=== PATIENT | female | born 1955 | race African-American/Black ===

== ENCOUNTER 2020-07-02 12:13 | Inpatient (IN) | payer MEDICARE, OTHER ==
[2020-07-02] MEDS ORDERED: Insulin Regular 300 UNITS/3 ML VIAL ONE (12:22)
[2020-07-02] MEDS ORDERED: Norepinephrine 8 MG/0.9% NS 250 ML ONE ×2 (12:31→18:52)
[2020-07-02 12:56] LABS: Hemoglobin 7.7 g/dL (12.0-16.0); Mean Corpuscular Hemoglobin 31.5 pg (27.0-31.0); RBC Distribution Width 16.5 % (11.5-14.5); Red Blood Cell (RBC) Count 2.44 mill/uL (4.20-5.40); White Blood Cell (WBC) Count 8.5 thou/uL (4.8-10.8)
[2020-07-02 12:57] LABS: #Basophils 0.1 thou/uL (0.0-0.2); #Lymphocytes 3.5 thou/uL (1.20-3.40); #Monocytes 0.1 thou/uL (0.11-0.59); #Neutrophils 4.9 thou/uL (1.40-6.50); %Basophils 1.2 % (0.0-1.0); %Eosinophils 0.1 % (0.0-10.0); %Lymphocytes 40.5 % (21.0-51.0); %Monocytes 0.8 % (0.0-10.0); %Neutrophils 57.4 % (42.0-75.0)
[2020-07-02 13:01] LABS: INR-International Normal Ratio 1.3; Prothrombin Time 16.2 sec (12.0-14.7)
[2020-07-02 13:02] LABS: PTT 50.4 sec (22.9-36.1)
[2020-07-02 13:15] LABS: Analyzer IN Cardio ER; Base Excess (BEa) -10.6 mEq/L (-2.0 to +3.0); Calcium, Ionized (arterial) 1.27 mmol/L (1.12-1.30); Carboxyhemoglobin (COHb) 0.3 gm% (0.0-3.0); Hemoglobin (Hb) 10.4 g/dL (12.0-16.0); O2 Tension (PaO2), arterial 72.6 mmHg (> 80.0); Potassium - ABG Lab 5.46 mmol/L (3.70-5.30); pH, Arterial 7.11 (7.35-7.45)
[2020-07-02 13:16] LABS: ALV-art Gradient 564.275 mmHg (0-20); CO2 Tension 60.9 mmHg (35.0-45.0); Puncture Site RBA
[2020-07-02 13:20] LABS: Acetaminophen Less than 6.0 mcg/mL (10.0-30.0); Alcohol Less than 10 mg/dL (Less than 10); CK (CPK) 116 U/L (29-168); Magnesium 2.6 mg/dL (1.6-2.6); Salicylate Less than 8.0 mg/dL (15.0-30.0)
[2020-07-02 13:22] LABS: ALT (SGPT) 667 U/L (8-55); AST (SGOT) 890 U/L (5-34); Albumin 2.7 g/dL (3.4-4.8); Alkaline Phosphatase 69 U/L (40-110); Anion Gap 32 mmol/L (10-20); BUN (Urea Nitrogen) 72 mg/dL (9.8-20.1); Bilirubin, Total 0.4 mg/dL (0.2-1.2); Calc. Creatinine Clearance 0 mL/min (70-130); Calcium 8.1 mg/dL (7.8-10.44); Carbon Dioxide 19 mmol/L (23-31); Chloride 91 mmol/L (98-107); Globulin 2.5 g/dL (2.4-3.5); Lipase 55 U/L (8-78); Potassium 5.9 mmol/L (3.5-5.1); Protein, Total 5.2 g/dL (5.8-8.1); Sodium 136 mmol/L (136-145)
[2020-07-02 13:22] LABS: Anisocytosis SLIGHT = 6-15 cells (100X) (0-5/hpf); Hypochromia SLIGHT = 6-15 cells (100X) (0-5/hpf); Large Platelets SLIGHT; MDiff Complete? YES; Macrocytosis SLIGHT = 6-15 cells (100X) (0-5/hpf); Mean Platelet Volume 11.4 fL (7.4-10.4); Platelet Count 100 thou/uL (130-400); Platelet Morphology Comment Appears Decreased; Polychromasia SLIGHT = 2-3 cells (100X) (0-2/hpf)
[2020-07-02 13:45] LABS: Glucose 795 mg/dL (80-115)
[2020-07-02 14:03] LABS: CKMB 0.9 ng/mL (0-6.6)
[2020-07-02] MEDS ORDERED: Calcium Chloride 1 GM/10 ML Abboject SYRINGE ONE (14:05)
[2020-07-02] MEDS ORDERED: Sodium Bicarb 50 MEQ/50 ML Abboject 8.4% SYRINGE ONE (14:05)
[2020-07-02] MEDS ORDERED: Dextrose 50% Abboject 50 ML SYRINGE ONE (14:05)
[2020-07-02] MEDS ORDERED: EPINEPHrine 1 MG/10 ML Abboject SYRINGE ONE (14:05)
[2020-07-02 14:31] LABS: Bacteria/HPF None Seen HPF (None Seen); Bilirubin Negative (Negative); Blood, Urine 2+ (Negative); Clarity Clear (Clear); Glucose, Urine (Dipstick) Greater than 1000 mg/dL (Negative); Ketone, Urine Negative (Negative); Leukocyte Negative Leu/uL (Negative); Nitrite Negative (Negative); Protein, Urine (Dipstick) 20 mg/dL (Neg-Trace); RBC/HPF 0-3 HPF (0-3); Specific Gravity, Urine 1.011 (1.002-1.036); Squamous Epithelial 0-3 HPF (0-3); Urobilinogen Normal mg/dL (Less than 2)
[2020-07-02] MEDS ORDERED: Electrolyte Replacement Protocol 1 EACH IVPB ONE (14:34)
[2020-07-02] MEDS ORDERED: Sodium Chloride 0.9% 1,000 ML IV PRN ×4 (14:34)
[2020-07-02] MEDS ORDERED: NS 0.9% w/ 20 MEQ KCL 1,000 ML IV PRN (14:34)
[2020-07-02 14:37] LABS: Amphetamine Not Detected (NotDetected); Barbiturates Screen Not Detected (NotDetected); Benzodiazepine Screen Not Detected (NotDetected); Cocaine Metabolite Screen Not Detected (NotDetected); Medtox Control Line Valid? VALID (VALID); Medtox Reader # READER 1; Methadone Not Detected (NotDetected); Methamphetamine Not Detected (NotDetected); Opiate Screen Not Detected (NotDetected); Oxycodone Screen Not Detected (NotDetected); Phencyclidine (PCP) Not Detected (NotDetected); THC/Cannabinoid Screen Not Detected (NotDetected); Tricyclic Screen Not Detected (NotDetected)
[2020-07-02] MEDS ORDERED: HUMULIN R 100 UNITS in Sodium Chloride 0.9% 100 ML IVPB SCH (14:45)
[2020-07-02 15:18] LABS: Actual Bicarbonate (HCO3a) 26.9 mEq/L (22-28); Analyzer IN Cardio ER; Base Excess (BEa) -1.5 mEq/L (-2.0 to +3.0); Calcium, Ionized (arterial) 1.17 mmol/L (1.12-1.30); Carboxyhemoglobin (COHb) 0.3 gm% (0.0-3.0); Hemoglobin (Hb) 9.3 g/dL (12.0-16.0); Potassium - ABG Lab 4.72 mmol/L (3.70-5.30)
[2020-07-02 15:20] LABS: CO2 Tension 67.9 mmHg (35.0-45.0); O2 Tension (PaO2), arterial 34.2 mmHg (> 80.0); pH, Arterial 7.22 (7.35-7.45)
[2020-07-02 15:21] LABS: Puncture Site Other Site
[2020-07-02 15:22] LABS: ALV-art Gradient 593.925 mmHg (0-20)
[2020-07-02 16:40] LABS: Anion Gap 26 mmol/L (10-20); BUN (Urea Nitrogen) 74 mg/dL (9.8-20.1); Calc. Creatinine Clearance 0 mL/min (70-130); Calcium 8.6 mg/dL (7.8-10.44); Carbon Dioxide 24 mmol/L (23-31); Chloride 97 mmol/L (98-107); Potassium 4.6 mmol/L (3.5-5.1); Sodium 142 mmol/L (136-145)
[2020-07-02 16:49] LABS: Glucose 651 mg/dL (80-115); Lactic Acid 10.1 mmol/L (0.5-2.2)
[2020-07-02] MEDS ORDERED: Vasopressin 20 UNIT, Admixture Fee 1 EACH in Sodium Chloride 0.9% 50 ML IV SCH (17:30)
[2020-07-02 17:31] LABS: Actual Bicarbonate (HCO3a) 27.6 mEq/L (22-28); Base Excess (BEa) 0.6 mEq/L (-2.0 to +3.0); CO2 Tension 56.8 mmHg (35.0-45.0); Calcium, Ionized (arterial) 1.13 mmol/L (1.12-1.30); Carboxyhemoglobin (COHb) 0.3 gm% (0.0-3.0); Hemoglobin (Hb) 10.5 g/dL (12.0-16.0); Potassium - ABG Lab 4.22 mmol/L (3.70-5.30); pH, Arterial 7.31 (7.35-7.45)
[2020-07-02 17:35] LABS: Puncture Site RRA
[2020-07-02 17:44] VITALS: BMI 42.8
[2020-07-02 17:56] LABS: #Lymphocytes 1.1 thou/uL (1.20-3.40); #Monocytes 0.4 thou/uL (0.11-0.59); #Neutrophils 6.8 thou/uL (1.40-6.50); %Basophils 0.1 % (0.0-1.0); %Eosinophils 0.2 % (0.0-10.0); %Lymphocytes 12.9 % (21.0-51.0); %Neutrophils 81.8 % (42.0-75.0); Hemoglobin 9.4 g/dL (12.0-16.0); Mean Corpuscular HGB CONC 30.8 g/dL (32.0-36.0); Mean Corpuscular Hemoglobin 30.5 pg (27.0-31.0); Mean Corpuscular Volume 99.2 fL (78.0-98.0); Mean Platelet Volume 11.2 fL (7.4-10.4); Platelet Count 136 thou/uL (130-400); RBC Distribution Width 16.4 % (11.5-14.5); Red Blood Cell (RBC) Count 3.07 mill/uL (4.20-5.40); White Blood Cell (WBC) Count 8.3 thou/uL (4.8-10.8)
[2020-07-02 18:00] LABS: Anion Gap 25 mmol/L (10-20); BUN (Urea Nitrogen) 73 mg/dL (9.8-20.1); Calc. Creatinine Clearance 34 mL/min (70-130); Calcium 8.3 mg/dL (7.8-10.44); Carbon Dioxide 23 mmol/L (23-31); Chloride 98 mmol/L (98-107); Potassium 4.6 mmol/L (3.5-5.1); Sodium 141 mmol/L (136-145)
[2020-07-02 18:02] LABS: Glucose 683 mg/dL (80-115); Lactic Acid 6.3 mmol/L (0.5-2.2)
[2020-07-02 18:06] LABS: Troponin I 0.146 ng/mL (< 0.028)
[2020-07-02] MEDS: HUMULIN R 100 UNITS in Sodium Chloride 0.9% 100 ML IVPB SCH (18:49)
[2020-07-02] MEDS: Sodium Chloride 0.9% 1,000 ML IV SCH (19:05)
[2020-07-02 20:16] LABS: Anion Gap 19 mmol/L (10-20); BUN (Urea Nitrogen) 79 mg/dL (9.8-20.1); Calc. Creatinine Clearance 34 mL/min (70-130); Calcium 8.2 mg/dL (7.8-10.44); Carbon Dioxide 29 mmol/L (23-31); Chloride 96 mmol/L (98-107); Potassium 4.2 mmol/L (3.5-5.1); Sodium 140 mmol/L (136-145)
[2020-07-02 20:20] LABS: Glucose 730 mg/dL (80-115); Troponin I 0.223 ng/mL (< 0.028)
[2020-07-02] MEDS: Pantoprazole 40 MG VIAL IVP SCH (20:30)
[2020-07-02] MEDS: Dexamethasone 4 mg/ml Vial SLOW IVP SCH (20:30)
[2020-07-02 23:09] LABS: Lactic Acid 3.1 mmol/L (0.5-2.2)
[2020-07-02 23:12] LABS: Anion Gap 20 mmol/L (10-20); BUN (Urea Nitrogen) 80 mg/dL (9.8-20.1); Calc. Creatinine Clearance 30 mL/min (70-130); Calcium 8.3 mg/dL (7.8-10.44); Carbon Dioxide 28 mmol/L (23-31); Chloride 99 mmol/L (98-107); Potassium 3.5 mmol/L (3.5-5.1); Sodium 143 mmol/L (136-145)
[2020-07-02 23:14] LABS: Glucose 595 mg/dL (80-115)
[2020-07-03 00:15] LABS: Hemoglobin 9.8 g/dL (12.0-16.0); Platelet Count 135 thou/uL (130-400)
[2020-07-03] MEDS: HUMULIN R 100 UNITS in Sodium Chloride 0.9% 100 ML IVPB SCH ×3 (00:26→07:55)
[2020-07-03 01:45] LABS: Lactic Acid 3.8 mmol/L (0.5-2.2)
[2020-07-03] MEDS: Norepinephrine 8 MG/0.9% NS 250 ML IVPB SCH (03:48)
[2020-07-03 04:54] LABS: Hemoglobin 8.8 g/dL (12.0-16.0); Mean Corpuscular HGB CONC 32.6 g/dL (32.0-36.0); Mean Corpuscular Hemoglobin 30.3 pg (27.0-31.0); Mean Corpuscular Volume 92.9 fL (78.0-98.0); Mean Platelet Volume 7.5 fL (7.4-10.4); Platelet Count 156 thou/uL (130-400); RBC Distribution Width 18.3 % (11.5-14.5); Red Blood Cell (RBC) Count 2.89 mill/uL (4.20-5.40)
[2020-07-03 05:03] LABS: Lactic Acid 1.1 mmol/L (0.5-2.2)
[2020-07-03 05:04] LABS: Anion Gap 12 mmol/L (10-20); BUN (Urea Nitrogen) 45 mg/dL (9.8-20.1); Calc. Creatinine Clearance 36 mL/min (70-130); Calcium 8.4 mg/dL (7.8-10.44); Carbon Dioxide 26 mmol/L (23-31); Chloride 102 mmol/L (98-107); Glucose 114 mg/dL (80-115); Potassium 3.7 mmol/L (3.5-5.1); Sodium 136 mmol/L (136-145)
[2020-07-03 05:33] LABS: Band 7 % (5-11); Lymphocytes 1 % (21-51); MDiff Complete? YES; Monocytes 3 % (0-10); Neutrophil 89 % (42-75)
[2020-07-03] MEDS: Sodium Chloride 0.9% 1,000 ML IV SCH ×2 (05:36→13:47)
[2020-07-03] MEDS: Pantoprazole 40 MG VIAL IVP SCH ×2 (08:55→21:10)
[2020-07-03] MEDS: Dexamethasone 4 mg/ml Vial SLOW IVP SCH ×3 (08:55→21:10)
[2020-07-03 12:39] LABS: Hemoglobin 9.3 g/dL (12.0-16.0); Platelet Count 139 thou/uL (130-400)
[2020-07-03] MEDS ORDERED: Dextrose 50% Abboject 50 ML SYRINGE SLOW IVP PRN (17:26)
[2020-07-03] MEDS ORDERED: Dextrose 5% in Water 1,000 ML IV PRN (17:26)
[2020-07-03] MEDS ORDERED: FLU VACC QS2020-21(65YR UP)/PF 240 MCG/0.7 ML SYRINGE IM ONE (18:00)
[2020-07-03 18:31] LABS: Hemoglobin 9.4 g/dL (12.0-16.0); Platelet Count 132 thou/uL (130-400)
[2020-07-03] MEDS: HumaLOG 300 UNITS/3 ML VIAL SC PRN (21:30)
[2020-07-04] MEDS: Sodium Chloride 0.9% 1,000 ML IV SCH ×2 (00:07→08:11)
[2020-07-04] MEDS: Norepinephrine 8 MG/0.9% NS 250 ML IVPB SCH ×2 (00:07→11:50)
[2020-07-04] MEDS: HumaLOG 300 UNITS/3 ML VIAL SC PRN ×2 (05:45→11:45)
[2020-07-04 06:36] LABS: Chloride 104 mmol/L (98-107); Potassium 4.4 mmol/L (3.5-5.1); Sodium 146 mmol/L (136-145)
[2020-07-04 06:37] LABS: Calcium 7.4 mg/dL (7.8-10.44); Glucose 412 mg/dL (80-115)
[2020-07-04 06:39] LABS: Anion Gap 27 mmol/L (10-20); Carbon Dioxide 19 mmol/L (23-31)
[2020-07-04 06:41] LABS: BUN (Urea Nitrogen) 100 mg/dL (9.8-20.1)
[2020-07-04 06:52] LABS: Calc. Creatinine Clearance 20 mL/min (70-130)
[2020-07-04] MEDS: Pantoprazole 40 MG VIAL IVP SCH (08:11)
[2020-07-04] MEDS: Dexamethasone 4 mg/ml Vial SLOW IVP SCH (08:12)
[2020-07-04 08:42] LABS: Band 49 % (5-11); Burr Cells MODERATE= 6-15 cells (100X) (0-1/hpf); Lymphocytes 15 % (21-51); MDiff Complete? YES; Mean Corpuscular HGB CONC 30.7 g/dL (32.0-36.0); Mean Corpuscular Hemoglobin 30.3 pg (27.0-31.0); Mean Corpuscular Volume 98.8 fL (78.0-98.0); Metamyelocyte 3 % (0-0); Monocytes 4 % (0-10); Neutrophil 29 % (42-75); Nucleated RBC 6 % (0); Platelet Count 143 thou/uL (130-400); Platelet Morphology Comment Appears Adequate; RBC Distribution Width 16.1 % (11.5-14.5); Red Blood Cell (RBC) Count 3.29 mill/uL (4.20-5.40); White Blood Cell (WBC) Count 10.7 thou/uL (4.8-10.8)
[2020-07-04 10:41] VITALS: TEMP 99.4
[2020-07-04 11:23] VITALS: BP 88/42
[2020-07-04] MEDS ORDERED: EPINEPHrine 1 MG/10 ML Abboject SYRINGE ONE (12:09)
[2020-07-04 14:15] LABS: HBSAB Concentration Less than 8.00 mIU/mL; HBSAg Index 0.17 S/CO (0-0.99); Hep B Core Total Ab Non-Reactive (NonReactive); Hep B Core Total Index 0.03 S/CO (0-0.79); Hep B Surf AB Non-Reactive (NonReactive); Hep B Surf Ag Non-Reactive S/CO (NonReactive); Hep C IgG Ab Non-Reactive (NonReactive); Hep C Index 0.06 S/CO (0-0.79)
== END 2020-07-04 12:39 | disposition expired | DRG 296 ==
LOC: ERS 12:13 → CCU 14:05
PROVIDERS: ADMIT Internal Medicine; ATTEND Internal Medicine
PROC: 3E033XZ Introduction of Vasopressor into Peripheral Vein, Percutaneous Approach (ICD-10-PCS; principal; 2020-07-02)
PROC: 8E0ZXY6 Isolation (ICD-10-PCS; 2020-07-02)
PROC: 5A1945Z Respiratory Ventilation, 24-96 Consecutive Hours (ICD-10-PCS; 2020-07-02)
PROC: 30233N1 Transfusion of Nonautologous Red Blood Cells into Peripheral Vein, Percutaneous Approach (ICD-10-PCS; 2020-07-02)
PROC: 06HY33Z Insertion of Infusion Device into Lower Vein, Percutaneous Approach (ICD-10-PCS; 2020-07-02)
PROC: 0D9670Z Drainage of Stomach with Drainage Device, Via Natural or Artificial Opening (ICD-10-PCS; 2020-07-02)
PROC: 5A12012 Performance of Cardiac Output, Single, Manual (ICD-10-PCS; 2020-07-04)
DX: I46.9 Cardiac arrest, cause unspecified (principal); U07.1 COVID-19; E11.10 Type 2 diabetes mellitus with ketoacidosis without coma; J96.02 Acute respiratory failure with hypercapnia; J12.82 Pneumonia due to coronavirus disease 2019; J96.01 Acute respiratory failure with hypoxia; N17.0 Acute kidney failure with tubular necrosis; D62 Acute posthemorrhagic anemia; K92.2 Gastrointestinal hemorrhage, unspecified; E87.2 Acidosis; G93.1 Anoxic brain damage, not elsewhere classified; Z68.41 Body mass index [BMI] 40.0-44.9, adult; E11.22 Type 2 diabetes mellitus with diabetic chronic kidney disease; I12.9 Hypertensive chronic kidney disease with stage 1 through stage 4 chronic kidney disease, or unspecified chronic kidney disease; N18.30 Chronic kidney disease, stage 3 unspecified; E87.5 Hyperkalemia; E11.65 Type 2 diabetes mellitus with hyperglycemia; I95.9 Hypotension, unspecified; E66.01 Morbid (severe) obesity due to excess calories; E78.5 Hyperlipidemia, unspecified; E11.39 Type 2 diabetes mellitus with other diabetic ophthalmic complication; E03.9 Hypothyroidism, unspecified; L89.152 Pressure ulcer of sacral region, stage 2; L89.891 Pressure ulcer of other site, stage 1; H42 Glaucoma in diseases classified elsewhere; D69.6 Thrombocytopenia, unspecified; I25.10 Atherosclerotic heart disease of native coronary artery without angina pectoris; Z85.850 Personal history of malignant neoplasm of thyroid; Z83.3 Family history of diabetes mellitus; Z82.49 Family history of ischemic heart disease and other diseases of the circulatory system; Z88.0 Allergy status to penicillin; Z78.1 Physical restraint status; Z79.890 Hormone replacement therapy; Z79.899 Other long term (current) drug therapy; Z79.891 Long term (current) use of opiate analgesic
CPT/HCPCS: 31500; 36415; 36416; 36430; 36556; 36600; 51702; 71045; 74018; 80048; 80053; 80306; 80307; 81003; 81015; 82274; 82550; 82553; 82728; 82805; 83540; 83605; 83690; 83735; 84443; 84484; 85025; 85610; 85730; 86704; 86706; 86803; 86850; 86900; 86901; 87045; 87046; 87324; 87340; 87427; 87449; 87635; 92950; 93005; 94002; 94003; 94760; 96365; 96366; 96375; 99292; C9113; C9803; J0171; J0692; J1100; J1815; J3490; P9016; P9045; U0003; U0005